=== PATIENT | female | born 1990 | race Caucasian/White ===

== ENCOUNTER 2021-09-02 13:29 | Emergency (ER) | payer SELFPAY ==
[2021-09-02 13:42] VITALS: BP 111/70; PULSE 65; RESP 16; TEMP 36.6; O2SAT 100
--- NOTE | 2021-09-02 16:45 | ECG_ITS ---
[facility] Test Date: 2021-09-02 Pat Name: Aurora Melvin Department: Room: Gender: Female Enrollment Management Director: : 1990 Requested By: Jean Carlos Mohr Order Number: [id number] Reading MD: ESTER ZUNIGA Measurements Intervals [place] Rate: 41 P: 48 SD: 131 QRS: 76 QRSD: 89 T: 44 QT: 502 QTc: 418 Interpretive Statements SINUS BRADYCARDIA No previous ECG available for comparison Electronically Signed On 09-02-2021 19:56:08 FIFTH HAND by ESTER ZUNIGA [id number]
--- NOTE | 2021-09-02 16:45 | XRR_ITS ---
PROCEDURE INFORMATION: Exam: XR Chest Exam date and time: 09/02/2021 4:45 PM Age: 30 years old Clinical indication: Other: Central chest pain; Additional info: Central chest pain; Smoker, shield abd; No fever or cough TECHNIQUE: Imaging protocol: XR of the chest. Views: 2 views. COMPARISON: No relevant prior studies available. FINDINGS: Lungs: Lungs are clear bilaterally. Pleural spaces: No pleural effusion. No pneumothorax. Heart/Mediastinum: The cardiac silhouette and mediastinal contours are unremarkable. Bones/joints: Unremarkable for age. XR/XR chest 2V* [id number] IMPRESSION: No acute cardiopulmonary process.
--- NOTE | 2021-09-02 16:46 | W.ED.CHESTPA ---
HPI - Chest Pain General: Chief Complaint: Shortness of Breath/Dyspnea Stated Complaint: SOB, Diff Breathing, chest pain for a week now Time Seen by Provider: 09/02/21 16:39 Source: patient Mode of arrival: ambulatory Limitations: no limitations History of Present Illness: HPI narrative: Complaining of mild shortness of breath and central chest pain for the past week. She denies fever chills or sweats. She denies any cough. She denies any peripheral edema. Denies any previous history of heart problems or blood clots. She does smoke. MD complaint: chest pain Timing of current episode: episodic Prior episodes: No Onset: during rest Pain location: substernal, left chest and right chest Pain radiation: none Severity: mild Quality: sharp and other (Hurts when she takes a deep breath.) Relieving factors: nothing Exacerbating factors: inspiration Associated symptoms: Reports dyspnea (Minimal); Deny abdominal pain, diaphoresis, fever(s), leg edema, nausea, palpitations, syncope or vomiting Treatment prior to arrival: none Risk Factors: Coronary artery disease risk factors: smoking history Review of Systems Const: Denies: fever(s) or diaphoresis Eyes: Denies: change in vision ENMT: Denies: throat pain Card: Reports: chest pain; Denies: palpitations, edema, swelling of feet/ankles, lightheadedness, syncope, dyspnea on exertion or orthopnea Resp: Reports: dyspnea (Minimal) and pain on inspiration; Denies: wheezing, hemoptysis or chest congestion GI: Denies: abdominal pain, nausea or vomiting : Denies: flank pain Musc: Denies: neck pain or back pain Skin/Breast: Denies: rash or pruritus Neuro: Denies: headache(s) or numbness in extremities Psych: Denies: anxiety Thony/Lymph: Denies: enlarged lymph nodes PFS ED Supplemental [facility] Information: Patient does smoke cigarettes. She denies any past medical history. She does not take any routine medications. She denies any allergies. Physical Exam Const: COMMON NORMALS: no acute distress, patient oriented x3, no limitations and well nourished EXAM LIMITATIONS: no altered mental status GENERAL APPEARANCE: cooperative HENMT: COMMON NORMALS: normocephalic and atraumatic HEAD & SCALP: normocephalic and atraumatic FACE & SINUS: normal facial exam Eye: COMMON NORMALS: EOMs intact bilaterally Neck/C-Spine: COMMON NORMALS: full ROM, no lymphadenopathy, supple and no meningeal signs GENERAL: Yes normal visual inspection Lymph: LYMPHATIC: no lymphadenopathy noted Chest: COMMONS NORMALS: normal inspection of the chest and normal palpation of entire chest wall CHEST: No Ecchymosis present and No rash Resp: COMMON NORMALS: normal respiratory effort, No retractions and clear to auscultation bilaterally EFFORT & INSPECTION: No respiratory distress AUSCULTATION: clear to auscultation bilaterally Cardio: COMMON NORMALS: regular rate, regular rhythm and Peripheral pulses 2+ throughout JUGULAR VENOUS DISTENTION: no JVD RATE: regular rate RHYTHM: regular rhythm PERIPHERAL PULSES: Peripheral pulses 2+ throughout GI: COMMON NORMALS: Normal to inspection, nondistended, normoactive bowel sounds present and non-tender : COMMON NORMALS: Yes no CVA tenderness BLADDER/KIDNEY EXAM: Yes no CVA tenderness Back/Pelvis: COMMON NORMALS: no CVA tenderness Extremity: COMMON NORMALS: normal to inspection, full ROM, capillary refill normal and no pedal edema Neuro: COMMON NORMALS: patient oriented x3, CN's II-XII intact bilaterally, no focal motor deficits and no sensory deficits noted MENINGEAL SIGNS: Yes no meningeal signs Psych: COMMON NORMALS: mental status grossly normal and Normal thought process present THOUGHT PROCESS: Normal thought process present Skin: COMMON NORMALS: no rashes or lesions noted and no wounds GENERAL SKIN EXAM: no rashes or lesions noted Course Vital Signs: Vital signs: Vital Signs Temperature 97.8 F 09/02/21 13:42 Pulse Rate 45 L 09/02/21 16:57 Respiratory Rate 14 09/02/21 16:57 Blood Pressure 114/74 09/02/21 16:57 Pulse Oximetry 99 09/02/21 16:57 MDM - Chest Pain Imaging Data^: CXR: Attestation: I personally reviewed and interpreted this imaging study as follows: My impression: Chest x-ray PA lateral shows nothing acute. No effusion. No pneumothorax. No masses. No infiltrates. EKG Data^: EKG 1: Attestation: I personally reviewed and interpreted this EKG as follows: EKG interpretation date: 09/02/21 EKG interpretation time: 16:57 Prior EKG tracings: not available for review Interpretation: Sinus bradycardia with a heart rate of 41. Mild repolarization. Otherwise normal EKG. Normal axis. Normal PA interval. Normal QT interval. Normal T waves. Normal QRS. Discharge Plan Discharge Patient Disposition: Home Clinical Impression: Chest pain, pleuritic, Bradycardia, sinus, Costochondritis Condition: Stable Prescriptions: New Naprosyn 500 mg tablet 500 mg PO BID PRN (Reason: pain) Qty: 10 RF: 2 Discharge Orders: Discharge ED (Routine); Ordered 09/02/21 Ordered By: Jean Carlos Dalton Discharge Diet: Usual diet Discharge Activity: Resume usual activity Patient Instructions: Pleurisy (ED), Costochondritis (ED), Bradycardia (ED) Activity Restrictions/Additional Instructions: EF chest wall pain. This is treated with anti-inflammatory medication. You also have sinus bradycardia. This should not be a concern and does not require any intervention. Avoid smoking. Coding Level of Care Code ED Brake Machine Operator for Delonte Fwd Exam Comprehensive
[2021-09-02 16:57] VITALS: BP 114/74; PULSE 45; RESP 14; O2SAT 99
[2021-09-02] MEDS: ketorolac 60 mg/2 mL INJ IM (17:26)
[2021-09-02 17:28] VITALS: BP 108/69; PULSE 53; RESP 16; O2SAT 97
== END 2021-09-02 17:31 | disposition home or self-care (01) ==
PROVIDERS: Emergency Provider Family Medicine
DX: R07.81 Pleurodynia (principal); R00.1 Bradycardia, unspecified; M94.0 Chondrocostal junction syndrome [Tietze]
CPT/HCPCS: 71046; 93005; 96372; 99283; J1885

== ENCOUNTER 2023-02-19 22:07 | Emergency (ER) | payer BC, MEDICAID, SELFPAY ==
[2023-02-19 22:08] VITALS: BP 102/64; PULSE 87; RESP 16; TEMP 36.4; O2SAT 95; BMI 21.6
[2023-02-19 22:26] LABS: HCG Qualitative Urine. Negative (Negative)
--- NOTE | 2023-02-19 22:26 | W.ED.PSYCHS ---
HPI - Psych General: Chief Complaint: Psychiatric Symptoms Stated Complaint: SI Time Seen by Provider: 02/19/23 22:07 Source: patient and EMS Mode of arrival: EMS Limitations: no limitations History of Present Illness: 32-year-old female states she has a history of schizophrenia she states that she been drinking today she also feels like she needs her meds adjusted she has not seen a physician in years. She has had some increased depression she denies any suicidality or homicidality. Denies any worsening improving factors. Associated symptoms: Reports depression Review of Systems Const: Denies: fever(s) or chills Eyes: Denies: eye discomfort ENMT: Denies: throat pain or dental pain Card: Denies: chest pain Resp: Denies: dyspnea GI: Denies: abdominal pain, nausea, vomiting or diarrhea Musc: Denies: neck pain or back pain Skin/Breast: Denies: rash Neuro: Denies: headache(s) Psych: Reports: depression COUNTS INCLUDE 234 BEDS AT THE [facility] ED Female Reproductive History: Date of last menstrual period: 02/17/23 Course Vital Signs: Vital signs: Vital Signs Temperature 97.6 F 02/19/23 22:08 Pulse Rate 87 02/19/23 22:08 Respiratory Rate 16 02/19/23 22:08 Blood Pressure 102/64 02/19/23 22:08 Pulse Oximetry 95 02/19/23 22:08 Oxygen Delivery Me thod Room Air 02/19/23 22:08 MDM - Psych Medical Decision Making Patient presents here with depression she is also been drinking alcohol as well. She is not suicidal or homicidal did have her evaluated by psychiatrist Dr. Bradley who agrees she is stable for discharge we will get her CRC information we will try to get her follow-up with [facility] as well she is to return if worsening she understands agrees plan. Lab Data Laboratory Results HCG, Qual Negative (Negative) 02/19/23 22:19 Discharge Plan Discharge Patient Disposition: Home Clinical Impression: Depression Condition: Stable Prescriptions: No Action Naprosyn 500 mg tablet 500 mg PO BID PRN (Reason: pain) Qty: 10 2RF Rx Instructions: prn pain quetiapine 50 mg tablet Discharge Orders: Discharge ED (Routine); Ordered 02/19/23 Ordered By: Elsa Harrington Discharge Diet: Advance as tolerated Discharge Activity: Resume usual activity Patient Instructions: Depression (ED) Coding Level of Care Code ED Zigzag Elastic Attacher for Chg Fwd
--- NOTE | 2023-02-20 08:31 | DCPLANNER ---
Addendum entered by Judy Peña 02/22/23 08:44: manager of distribution received the following message from Rebecca at [facility] regarding patient: No VM set up. Original Note: manager of distribution had message to schedule a follow up appointment for patient with [facility]. manager of distribution sent patients information to the scheduling desk at [facility]. Patients information will be printed and reviewed. Clinic will call patient with appointment information. manager of distribution also sent patients information to Rebecca Osman, staffing coordinator, who will call patient and explain how to start services at [facility].
== END 2023-02-19 22:54 | disposition home or self-care (01) ==
PROVIDERS: Emergency Provider Emergency Medicine
DX: F32.A Depression, unspecified (principal)
CPT/HCPCS: 81025; 99283

== ENCOUNTER 2023-10-25 19:12 | Emergency (ER) | payer BC, MEDICAID, SELFPAY ==
[2023-10-25 19:12] VITALS: BP 162/92; PULSE 77; RESP 16; TEMP 36.9; O2SAT 98; BMI 26.6
--- NOTE | 2023-10-25 19:18 | ECG_ITS ---
[facility] Test Date: 2023-10-25 Pat Name: Aurora Melvin Department: Room: Gender: Female Tunnel Inspector: : 1990 Requested By: Elsa Harrington Order Number: [id number] Bro MD: David Flores M.D. Measurements Intervals [place] Rate: 55 P: 63 [place]: 147 QRS: 59 QRSD: 78 T: 59 QT: 454 QTc: 435 Interpretive Statements SINUS BRADYCARDIA Compared to ECG 09/02/2021 16:54:58 No significant changes Electronically Signed On 10-26-2023 8:49:34 LEGISLATIVE DIRECTOR by David Flores M.D. [id number]
--- NOTE | 2023-10-25 19:33 | ED_ITS ---
HPI - Recheck/Abnormal Lab/Rx 2 General: Chief Complaint: Recheck/Abnormal Lab/Rx Stated Complaint: fent. overdose Time Seen by Provider: 10/25/23 19:13 Source: patient and EMS Mode of arrival: EMS Limitations: no limitations History of Present Illness: 33-year-old female states her boyfriend were at detox facility for 6 days and released 3 days ago states they are given shots though she states this post to help with the to not use. She states that both her and her are feeling lightheaded her boyfriend at passed out she states she has passed out but felt lightheaded EMS was called they did Narcan her boyfriend and he woke up patient states she feels improved currently she did not receive Narcan. She denies any drug use since being released. Review of Systems 2 Const: Reports: malaise; Denies: fever(s), chills, body aches or change in appetite ENMT: Denies: throat pain or dental pain Card: Reports: pre-syncope; Denies: chest pain Resp: Denies: dyspnea GI: Reports: nausea; Denies: abdominal pain, vomiting or diarrhea Musc: Denies: neck pain or back pain Skin/Breast: Denies: rash Neuro: Denies: headache(s) [facility] ED 2 Female Reproductive History: Date of last menstrual period: 10/08/23 Physical Exam 2 Const: COMMON NORMALS: no acute distress, patient oriented x3 and healthy appearing HENMT: COMMON NORMALS: normocephalic and atraumatic HEAD & SCALP: n ormocephalic and atraumatic Eye: COMMON NORMALS: Equal, round and reactive pupils present and EOMs intact bilaterally PUPIL: Yes Equal, round and reactive pupils present Neck/C-Spine: COMMON NORMALS: full ROM and supple Chest: COMMONS NORMALS: normal inspection of the chest Resp: COMMON NORMALS: normal respiratory effort, No retractions, No use of accessory muscles and clear to auscultation bilaterally AUSCULTATION: clear to auscultation bilaterally Cardio: COMMON NORMALS: regular rate, regular rhythm and No murmurs present (Cardio) RATE: regular rate RHYTHM: regular rhythm Extremity: COMMON NORMALS: normal to inspection and full ROM Neuro: COMMON NORMALS: patient oriented x3, moves all extremities and no focal motor deficits Psych: COMMON NORMALS: mental status grossly normal, Normal thought process present and cooperative THOUGHT PROCESS: Normal thought process present Skin: COMMON NORMALS: no rashes or lesions noted and no wounds GENERAL SKIN EXAM: no rashes or lesions noted Course 2 Vital Signs: Vital signs: Vital Signs Temperature 98.4 F 10/25/23 19:12 Pulse Rate 77 10/25/23 19:12 Respiratory Rate 16 10/25/23 19:12 Blood Pressure 162/92 10/25/23 19:12 Pulse Oximetry 98 10/25/23 19:12 MDM - Recheck/Abnormal Lab/Rx Medical Decision Making Patient presents here after near syncopal event patient's blood work here is normal I did want observe her for the longer but she refused patient signed out AMA she is of her right mind knows the risk and did sign out AMA. Medical Records I reviewed the patient's medical records. Lab Data I reviewed the patient's lab results. 10/25/23 19:40 10/25/23 19:40 Laboratory Results WBC 12.91 10^3/uL (3.29-11.43) H 10/25/23 19:40 RBC 4.16 10^6/uL (3.85-5.65) 10/25/23 19:40 Hgb 12.10 g/dL (11.27-16.99) 10/25/23 19:40 Hct 37.7 % (36-47) 10/25/23 19:40 MCV 90.6 fl (85-98) 10/25/23 19:40 MCH 29.1 pg (27-33) 10/25/23 19:40 MCHC 32.1 g/dL (30-55) 10/25/23 19:40 RDW 12.7 % (12.1-15.1) 10/25/23 19:40 Plt Count 403 10^3/cmm (157-399) H 10/25/23 19:40 MPV 9.4 fL (7.4-10.4) 10/25/23 19:40 Neut % (Auto) 69.0 % 10/25/23 19:40 Lymph % (Auto) 23.3 % 10/25/23 19:40 [place] % (Auto) 6.0 % 10/25/23 19:40 Eos % (Auto) 0.9 % 10/25/23 19:40 Baso % (Auto) 0.3 % 10/25/23 19:40 Neut # (Auto) 8.90 10^3/uL (1.8-7.7) H 10/25/23 19:40 Lymph # (Auto) 3.0 10^3/uL (0.8-4.8) 10/25/23 19:40 [place] # (Auto) 0.8 10^3/uL (0.2-0.9) 10/25/23 19:40 Eos # (Auto) 0.1 10^3/uL (0.0-0.8) 10/25/23 19:40 Baso # (Auto) 0.0 10^3/uL (0.0-0.1) 10/25/23 19:40 Nucleated RBC % (auto) 0 % 10/25/23 19:40 Nucleated RBCs # 0.0 /100WBC 10/25/23 19:40 Sodium 140 mmol/L (136-145) 10/25/23 19:40 Potassium 4.0 mmol/L (3.5-5.1) 10/25/23 19:40 Chloride 104 mmol/L (98-107) 10/25/23 19:40 Carbon Dioxide 24 mmol/L (22-29) 10/25/23 19:40 Anion Gap 16.0 (5-19) 10/25/23 19:40 BUN 12 mg/dL (6-20) 10/25/23 19:40 Creatinine 0.6 mg/dL (0.5-0.9) 10/25/23 19:40 GFR Calculation 114.4 mL/min (90-130) 10/25/23 19:40 Glucose 93 mg/dL (65-115) 10/25/23 19:40 Calculated Osmolality 289 mOsm/kg (285-295) 10/25/23 19:40 Calcium 9.6 mg/dL (8.5-10.5) 10/25/23 19:40 Total Bilirubin 0.4 mg/dL (0.15-1.2) 10/25/23 19:40 AST 14 U/L (0-32) 10/25/23 19:40 ALT 14 U/L (0-33) 10/25/23 19:40 Alkaline Phosphatase 57 U/L (35-105) 10/25/23 19:40 Total Protein 7.5 g/dL (6.6-8.7) 10/25/23 19:40 Albumin 4.4 g/dL (3.5-5.2) 10/25/23 19:40 Globulin 3.1 g/dL (1.3-4.6) 10/25/23 19:40 HCG, Qual Negative (Negative) 10/25/23 19:23 Salicylates < 0.3 mg/dL (3-10) L 10/25/23 19:40 Urine Opiates Screen Negative ng/mL (Negative) 10/25/23 19:23 Acetaminophen < 5.0 ug/mL (10-30) L 10/25/23 19:40 Ur Barbiturates Screen Negative ng/mL (Negative) 10/25/23 19:23 Ur Phencyclidine Scrn Negative ng/mL (Negative) 10/25/23 19:23 Ur Amphetamines Screen Negative ng/mL (Negative) 10/25/23 19:23 U Benzodiazepines Scrn Positive ng/mL (Negative) H 10/25/23 19:23 Urine Cocaine Screen Negative ng/mL (Negative) 10/25/23 19:23 U Marijuana (THC) Screen Negative ng/mL (Negative) 10/25/23 19:23 Ethyl Alcohol < 10 mg/dL (0-10) 10/25/23 19:40 All radiology interpretation(s) finalized by discharge EKG Data EKG 1: I personally reviewed and interpreted this EKG as follows: EKG interpretation date: 10/25/23 EKG interpretation time: 19:42 Interpretation: sinus vicky hr [address] or t wave abnormalities qrs 78 qtc 442 Discharge Plan Discharge Patient Disposition: Left Against Medical Advice Clinical Impression: Near syncope Condition: Stable Prescriptions: No Action Naprosyn 500 mg tablet 500 mg PO BID PRN (Reason: pain) Qty: 10 2RF Rx Instructions: prn pain quetiapine 50 mg tablet Coding Level of Care Code ED Curtain Hemmer Automatic for Delonte Andujar
[2023-10-25 19:43] LABS: HCG Qualitative Urine. Negative (Negative)
[2023-10-25 19:56] LABS: Amphetamines Screen Urine Negative (Negative); Barbiturates Screen Urine Negative (Negative); Benzodiazepines Screen Urine Positive (Negative); Cocaine Screen Urine Negative (Negative); Opiate Screen Urine Negative (Negative); PCP Screen Urine Negative (Negative); THC Screen Urine Negative (Negative)
[2023-10-25 19:59] LABS: Basophils % 0.3 %; Eosinophils # 0.1 10^3/uL (0.0-0.8); Eosinophils % 0.9 %; Hematocrit 37.7 % (36-47); Lymphocytes % 23.3 %; Mean Corpuscular HGB Conc 32.1 g/dL (30-55); Mean Corpuscular Hemoglobin 29.1 pg (27-33); Mean Corpuscular Volume 90.6 fl (85-98); Mean Platelet Volume 9.4 fL (7.4-10.4); Monocytes # 0.8 10^3/uL (0.2-0.9); Nucleated Red Blood Cells % 0 %; Platelet Count 403 10^3/cmm (157-399); Red Blood Count 4.16 10^6/uL (3.85-5.65); Red Cell Distribution Width 12.7 % (12.1-15.1); White Blood Count 12.91 10^3/uL (3.29-11.43)
[2023-10-25 20:16] LABS: Alanine Aminotransferase 14 U/L (0-33); Albumin Level 4.4 g/dL (3.5-5.2); Alkaline Phosphatase 57 U/L (35-105); Aspartate Amino Transferase 14 U/L (0-32); Blood Urea Nitrogen 12 mg/dL (6-20); Calcium 9.6 mg/dL (8.5-10.5); Carbon Dioxide 24 mmol/L (22-29); Chloride 104 mmol/L (98-107); Creatinine Clr Calc Pharmacy 131.8755; Globulin 3.1 g/dL (1.3-4.6); Glomerular Filtration Rate 114.4 mL/min (90-130); Glucose 93 mg/dL (65-115); Osmolality Calculated 289 mOsm/kg (285-295); Sodium 140 mmol/L (136-145); Total Bilirubin 0.4 mg/dL (0.15-1.2); Total Protein 7.5 g/dL (6.6-8.7)
[2023-10-25 20:20] LABS: Acetaminophen < 5.0 ug/mL (10-30); Alcohol Level < 10 mg/dL (0-10); Salicylate < 0.3 mg/dL (3-10)
[2023-10-25 20:42] VITALS: BP 162/92; PULSE 77; RESP 16; TEMP 36.9; O2SAT 98
== END 2023-10-25 20:44 | disposition left against medical advice (07) ==
PROVIDERS: Emergency Provider Emergency Medicine
DX: R55 Syncope and collapse (principal); Z53.29 Procedure and treatment not carried out because of patient's decision for other reasons
CPT/HCPCS: 80053; 80306; 80307; 81025; 85025; 93005; 99284